=== PATIENT | male | born 1975 | race Caucasian/White ===

== ENCOUNTER → 2020-08-05 | Outpatient (CLI) | payer OTHER ==
[~2020-08-05] MED LIST: AUGMENTIN 875-1 EACH PO; CIALIS10 MG PO; DOCUSATE SODIU100 MG PO; HYDROCODON-ACE1 EAC2 PO; SENNA LAX8.6 MG PO
[2020-08-05 16:36] LABS: HEMOGLOBIN 12.9 gm/dl (14.0-17.5); RED BLOOD COUNT 4.37 M/UL (4.20-5.50); WHITE BLOOD COUNT 8.6 K/UL (4.5-11.0)
[2020-08-05 16:57] LABS: BUN/CREATININE RATIO 17 (0-10)
== END ==
LOC: LAB 15:26
PROVIDERS: Family Medicine
DX: Z53.8 Procedure and treatment not carried out for other reasons (principal)
CPT/HCPCS: 36415; 71046; 80053; 85027

== ENCOUNTER 2020-08-06 16:43 | Inpatient (IN) | payer OTHER ==
[~2020-08-06] VITALS: Ht 185.4 cm; Wt 79.4 kg
[2020-08-06 17:45] LABS: HEMOGLOBIN 13.6 gm/dl (14.0-17.5); RED BLOOD COUNT 4.57 M/UL (4.20-5.50)
[2020-08-06 17:49] LABS: WHITE BLOOD COUNT 6.1 K/UL (4.5-11.0)
[2020-08-06 18:19] LABS: BUN/CREATININE RATIO 14 (0-10)
[2020-08-06] MEDS ORDERED: CIALIS10 MG PO (23:26)
[2020-08-07 03:36] LABS: RED BLOOD COUNT 4.73 M/UL (4.20-5.50)
[2020-08-07 03:47] LABS: WHITE BLOOD COUNT 18.8 K/UL (4.5-11.0)
[2020-08-07 04:04] LABS: BUN/CREATININE RATIO 13 (0-10)
[2020-08-08 03:37] LABS: HEMOGLOBIN 12.2 gm/dl (14.0-17.5)
[2020-08-08 03:44] LABS: RED BLOOD COUNT 4.2 M/UL (4.20-5.50); WHITE BLOOD COUNT 10.6 K/UL (4.5-11.0)
[2020-08-08 04:14] LABS: BUN/CREATININE RATIO 11 (0-10)
[2020-08-08] MEDS ORDERED: SENNA LAX8.6 MG PO (09:23)
[2020-08-08] MEDS ORDERED: DOCUSATE SODIU100 MG PO (09:23)
[2020-08-08] MEDS ORDERED: HYDROCODON-ACE1 EAC2 PO (09:23)
[2020-08-08] MEDS ORDERED: AUGMENTIN 875-1 EACH PO (09:36)
== END 2020-08-08 19:35 | disposition home or self-care (01) | DRG 340 ==
LOC: ER1 16:43 → M/S 17:33 → CDU 17:33 → M/S 21:45
PROVIDERS: Emergency Medicine; ADMIT Surgery
PROC: 0WJG4ZZ Inspection of Peritoneal Cavity, Percutaneous Endoscopic Approach (ICD-10-PCS; 2020-08-06)
PROC: 0DTJ0ZZ Resection of Appendix, Open Approach (ICD-10-PCS; principal; 2020-08-06 18:50)
DX: K35.32 Acute appendicitis with perforation, localized peritonitis, and gangrene, without abscess (principal); Z83.3 Family history of diabetes mellitus; Z84.1 Family history of disorders of kidney and ureter; Z98.890 Other specified postprocedural states; Z20.822 Contact with and (suspected) exposure to COVID-19
CPT/HCPCS: 36415; 71046; 74018; 74176; 80048; 80053; 83605; 83690; 85025; 85027; 87040; 87507; 99285; J0690; J2001; J2250; J2270; J2405; J2543; J2550; J2704; J2710; J3010; U0002

== ENCOUNTER → 2020-08-06 | Outpatient (CLI) | payer OTHER | LOC: KOH-I 13:47 | DX: Z53.8 Procedure and treatment not carried out for other reasons (principal) | CPT/HCPCS: 74176 ==

== ENCOUNTER → 2020-08-26 | Outpatient (CLI) | payer OTHER ==
[2020-08-26 12:20] LABS: HEMOGLOBIN 14.9 gm/dl (14.0-17.5); WHITE BLOOD COUNT 3.1 K/UL (4.5-11.0)
[2020-08-26 12:45] LABS: BUN/CREATININE RATIO 15 (0-10)
[2020-08-29 14:15] LABS: TESTOSTERONE, SERUM 442 ng/dL (264-916)
== END ==
LOC: LAB 11:57
PROVIDERS: Family Medicine
DX: Z12.5 Encounter for screening for malignant neoplasm of prostate (principal); R39.11 Hesitancy of micturition; F52.21 Male erectile disorder; D64.9 Anemia, unspecified; E88.09 Other disorders of plasma-protein metabolism, not elsewhere classified; Z90.49 Acquired absence of other specified parts of digestive tract
CPT/HCPCS: 36415; 80053; 81001; 84153; 84402; 84403; 85027; 87086

== ENCOUNTER → 2020-09-27 | Outpatient (CLI) | payer OTHER ==
[2020-09-27 12:47] LABS: BUN/CREATININE RATIO 20 (0-10)
== END ==
LOC: LAB 12:10
PROVIDERS: Family Medicine
DX: R19.7 Diarrhea, unspecified (principal); R50.9 Fever, unspecified
CPT/HCPCS: 36415; 80053

== ENCOUNTER → 2020-10-14 | Outpatient (CLI) | payer OTHER ==
[2020-10-14 16:21] LABS: HEMOGLOBIN 15.9 gm/dl (14.0-17.5); RED BLOOD COUNT 5.3 M/UL (4.20-5.50); WHITE BLOOD COUNT 4.9 K/UL (4.5-11.0)
== END ==
LOC: LAB 15:25
PROVIDERS: Family Medicine
DX: D72.819 Decreased white blood cell count, unspecified (principal); Z98.52 Vasectomy status; Z20.818 Contact with and (suspected) exposure to other bacterial communicable diseases; J02.9 Acute pharyngitis, unspecified
CPT/HCPCS: 36415; 85025; 86060

== ENCOUNTER → 2021-01-24 | Outpatient (CLI) | payer OTHER ==
[2021-01-25 08:09] LABS: LUTEINIZING HORMONE(LH) 5.3 mIU/mL (1.7-8.6); PROLACTIN 12.3 ng/mL (4.0-15.2); SEX HORM BINDING GLOB, SERUM 35.7 nmol/L (16.5-55.9)
== END ==
LOC: LAB 11:42
PROVIDERS: Nurse Practitioner Family
DX: N52.9 Male erectile dysfunction, unspecified (principal)
CPT/HCPCS: 36415; 82672; 83001; 83002; 84146; 84270